=== PATIENT | female | born 1960 | race Caucasian/White ===

== ENCOUNTER 2022-10-21 09:00 | Inpatient (IN) ==
--- NOTE | 2022-09-22 16:02 | PAT Medication Instructions ---
Medication Instructions Date of Service September 22, 2022 Home Medications aspirin 81 mg tablet 81 mg PO QAM atorvastatin 10 mg tablet 10 mg PO QAM calcium carbonate 600 mg-vitamin D3 5 mcg (200 unit) tablet 1 tab PO QAM flecainide 50 mg tablet 50 mg PO Q12H levocetirizine 5 mg tablet (Xyzal) 5 mg PO QAM levothyroxine 137 mcg tablet 137 mcg PO QAM metformin 500 mg tablet 500 mg PO QAM metoprolol tartrate 50 mg tablet 50 mg PO QAM multivitamin 1 tab PO QAM vitamins A,C,Z-sfyt-ybpsai 2,148 mcg-113 mg-45 mg-17.4 mg tablet (PreserVision AREDS) 2 tab PO QAM STOP taking 2 weeks before surgery vitamins A,C,R-zsuw-donzgi 2,148 mcg-113 mg-45 mg-17.4 mg tablet (PreserVision AREDS) 2 tab PO QAM DO NOT take the morning of surgery calcium carbonate 600 mg-vitamin D3 5 mcg (200 unit) tablet 1 tab PO QAM levocetirizine 5 mg tablet (Xyzal) 5 mg PO QAM metformin 500 mg tablet 500 mg PO QAM multivitamin 1 tab PO QAM Take morning of surgery With a small sip of water, OTHERWISE NOTHING TO EAT OR DRINK AFTER MIDNIGHT: aspirin 81 mg tablet 81 mg PO QAM (unless directed otherwise by surgeon) atorvastatin 10 mg tablet 10 mg PO QAM flecainide 50 mg tablet 50 mg PO Q12H levothyroxine 137 mcg tablet 137 mcg PO QAM metoprolol tartrate 50 mg tablet 50 mg PO QAM Take evening before surgery flecainide 50 mg tablet 50 mg PO Q12H Other Notes If you have any questions please call us at [phone] or [phone] or [phone] or [phone]
--- NOTE | 2022-09-30 12:07 | Anesthesiology Consultation ---
Date of Service September 30, 2022 Assessment & Plan (1) Encounter for pre-operative examination: - COVID screening: Per assessment on 09/30: No known COVID-19 positive contacts or current COVID-19 related symptoms. Travel screen negative. At surgeon discretion if preop Covid testing being done. - Check BSG AM DOS - Cardiology office visit (06/28/22): " Followup regarding CAD, HTN, HLD and PAF.. Upon further evaluation after our last visit, it was felt that she had atrial tachycardia. She was started on flecainide and her dose of metoprolol was increased. She wore a 7-day Zio in September as ordered by one of our EP colleagues and her avg HR was 106 bpm over the 7 days. She reports that her HR is often 100-115 bpm when checked at home by her pulse ox. It is unclear if there is an improved rate control of her atrial tachycardia or inappropriate sinus tachycardia. I will have her continue her current Rx and f/u with EP" - Cardiology office visit (09/14/22): "Cardiac risk assessment: Low" Chart Review Chart Review: Acceptable Risk for Surgery and Patient seen in Pre Admission Testing Teaching & Discussion Pre-Anesthesia Teaching/Discussion Notes: Instructed NPO after midnight before surgery,except medications with 15 cc of water. Medication instructions provided according to the PAT guidelines. History Surgery Operation Date: 10/21/22 09:15 Proposed Procedures p L2-S1 Decompression and Fusion with Spinal Cord Monitoring - Dudley Boone DO Height/Weight Height: 5 ft 7 in Weight: 114.1 kg Allergies Allergy/AdvReac Type Severity Reaction Status Date / Time azithromycin Allergy Intermediate Unknown Verified 09/22/22 10:06 bacitracin Allergy Intermediate swelling Verified 09/22/22 10:06 erythromycin base Allergy Intermediate Unknown Verified 09/22/22 10:06 polymyxin B Allergy Intermediate Swelling Verified 09/22/22 10:06 of the Eye Sulfa (Sulfonamide Allergy Intermediate Swelling Verified 09/22/22 10:06 Antibiotics) of the Eye tobramycin Allergy Intermediate swelling Verified 09/22/22 10:06 Medications Home Medications Medication Instructions Recorded Confirmed Last Taken aspirin 81 mg tablet 81 mg PO QAM 09/22/22 09/22/22 Unknown atorvastatin 10 mg tablet 10 mg PO QAM 09/22/22 09/22/22 Unknown calcium carbonate 600 mg-vitamin 1 tab PO QAM 09/22/22 09/22/22 Unknown D3 5 mcg (200 unit) tablet flecainide 50 mg tablet 50 mg PO Q12H 09/22/22 09/22/22 Unknown levocetirizine 5 mg tablet (Xyzal) 5 mg PO QAM 09/22/22 09/22/22 Unknown levothyroxine 137 mcg tablet 137 mcg PO QAM 09/22/22 09/22/22 Unknown metformin 500 mg tablet 500 mg PO QAM 09/22/22 09/22/22 Unknown metoprolol tartrate 50 mg tablet 50 mg PO QAM 09/22/22 09/22/22 Unknown multivitamin 1 tab PO QAM 09/22/22 09/22/22 Unknown vitamins A,C,D-ncmh-txifoz 2,148 2 tab PO QAM 09/22/22 09/22/22 Unknown mcg-113 mg-45 mg-17.4 mg tablet (PreserVision AREDS) Past Medical History Medical History CAD (coronary artery disease) Nonocclusive (2009) per cardio records Diabetes Environmental and seasonal allergies Hyperlipidemia Hypertension Hypothyroidism PAF (paroxysmal atrial fibrillation) Paroxysmal atrial tachycardia Exercise / Class Metabolic Activity II 4-5 Yardwork/Stairs/Walk up hill Past Surgical History Surgical History History of ankle surgery History of cardiac cath 2009 > no stents Hx of colonoscopy Hx of knee surgery Hx of tonsillectomy Past Anesthesia History No Hx of Anesthesia Complications and No Family Hx of Anesthesia Complications History of PONV No Hx of PONV and No Hx of Motion Sickness Social History Smoking Status: Never smoker Do You Dip or Chew Tobacco: No Hx Alcohol Use: Yes Alcohol type: wine alcohol intake frequency: holidays/special occasions only Hx Substance Use: No substance use type: does not use Review of Systems Patient denies chest pain, shortness of breath, dyspnea on exertion, fever, chills, cough, wheezing, palpitations. Physical Exam Vital Signs VITALS BP 134/87 P 99 TEMP 98.4 SP02 97%RA RESP 18 PHYSICAL Full cervical extension range of motion. Full TMJ range of motion. TMD 3.5 finger breaths Mallampati Score 2 Dentition: intact, + implant (molar) Lungs: clear throughout to auscultation Cardiac: regular rate and rhythm, no murmurs noted Spine: normal Carotid arteries: negative bruit Extremities: no edema Lab Results Anesthesia Preop Results Results Anesthesia Widget: WBC 6.67 K/ul (4.8-10.8) 09/30/22 Hgb 13.2 g/dl (12.0-16.0) 09/30/22 Hct 39.2 % (34.1-44.9) 09/30/22 Plt 201 K/uL (130-400) 09/30/22 Na 140 mmol/L (136-145) 09/30/22 K 4.3 mmol/L (3.5-5.1) 09/30/22 Cl 105 mmol/L (98-107) 09/30/22 CO2 30 mmol/L (21-32) 09/30/22 BUN 15 mg/dl (6-23) 09/30/22 Creat 1.01 mg/dl (0.6-1.2) 09/30/22 Glucose Level 117 mg/dl (70-99(Fasting)) H 09/30/22 PT 11.1 Seconds (9.0-12.0) 09/30/22 PTT 26.1 Seconds (21.0-31.0) 09/30/22 INR 1.0 (0.9-1.1) 09/30/22 HA1c 6.3 % (4.5-5.6) H 09/30/22 Urine Color Yellow 09/30/22 Urine Appearance Clear (Clear) 09/30/22 Urine pH 6.5 (4.5-7.5) 09/30/22 Urine Specific [place] 1.008 (1.000-1.030) 09/30/22 Urine Protein Negative (Negative) 09/30/22 Urine Glucose (UA) Negative (Negative) 09/30/22 Urine Ketones Negative (Negative) 09/30/22 Urine Blood Negative (Negative) 09/30/22 Urine Nitrite Negative (Negative) 09/30/22 Urine Bilirubin Negative (Negative) 09/30/22 Urine Urobilinogen Negative (Negative) 09/30/22 Urine Leukocyte Esterase Trace (Negative) H 09/30/22 Urine WBC (Auto) 1-5 /hpf (0-5) 09/30/22 Urine RBC (Auto) 0-4 /hpf (0-4) 09/30/22 Urine Hyaline Casts (Auto) 1-5 /lpf (0-5) 09/30/22 Urine Epithelial Cells (Auto) >30 /lpf (0-5) H 09/30/22 Urine Bacteria (Auto) Negative (Negative) 09/30/22 Blood Type O Positive 09/30/22 Antibody Screen NEGATIVE 09/30/22 Testing Electrocardiogram Date: 09/14/22 Sinus tachycardia with first-degree AV block at 112 bpm. Cannot rule out anterior infarct, age undetermined. Low amplitude anterior/septal leads. No change compared to 07/01/2021 per spray applicator comparison. Chest X-Ray Date: 09/30/22 FINDINGS: No lines and tubes are seen. The cardiomediastinal silhouette is normal. The lungs are clear. No evidence of pleural effusion or pneumothorax. IMPRESSION: No acute chest disease. Echocardiogram Date: 07/01/21 LVEF 50 to 55%. No significant valvular disease. Stress Test Date: 07/13/21 Type: nuclear Left ventricular perfusion is normal. There is no evidence of ischemia or infarction. No regional motion abnormalities noted on SPECT imaging. Post stress EF is normal at 60%. No evidence of ECG changes to suggest ischemia this is a low risk study. 54% MPHR. COVID-19 Risk Screen Screening Information COVID-19 Screen Date: 09/30/22 Exposure 21 Days Family/Household +COVID Last 21 Days: No Exposure 10 Days Any COVID Exposure Last 10 Days: No Symptoms Last 10 Days Experienced COVID Sx Last 10 Days: No + COVID 0-90 Days COVID + in Last 0-90 Days: No
[~2022-10-21 09:00] MED LIST: ACETAMINOPHEN 500 MG TAB PO SCH; CeleBREX 200 MG CAP PO SCH; GABAPENTIN 600 MG DOSE PO SCH; LR 15ML/HR IV SCH; ceFAZolin 2000MG 2,000 MG/15 ML SYR IV SCH
[2022-10-21] MEDS ORDERED: HYDROmorphone INJ 2 MG/ML SYR/VIAL IV PRN (09:24)
[2022-10-21] MEDS ORDERED: fentaNYL citrate 100 MCG/2 ML VIAL IV PRN (09:24)
[2022-10-21] MEDS ORDERED: ATROPINE SULFATE 0.1 MG/ML 10ML SYR IV PRN (09:24)
[2022-10-21] MEDS ORDERED: ePHEDrine sulfate 50 MG/ML AMP IV PRN (09:24)
[2022-10-21] MEDS ORDERED: ONDANSETRON INJ 2 MG/ML 2 ML VIAL IV PRN ×2 (09:24→15:42)
[2022-10-21] MEDS ORDERED: PROMETHAZINE HCL 6.25 MG in SODIUM CHLORIDE 0.9% 50 ML IV PRN (09:24)
[2022-10-21] MEDS ORDERED: MIDAZOLAM HCL 1 MG/ML 2ML VIAL ONE (10:30)
[2022-10-21] MEDS ORDERED: fentaNYL citrate 100 MCG/2 ML VIAL ONE (10:30)
--- NOTE | 2022-10-21 10:45 | History & Physical Bridge Note ---
Date of Service October 21, 2022 History & Physical Bridge Note I have examined the patient, reviewed the History & Physical and in the interval since the performance of the History & Physical I have noted the following changes of clinical significance: no changes noted
--- NOTE | 2022-10-21 10:47 | History & Physical Report ---
Date of Service October 21, 2022 Assessment & Plan (1) Neurogenic claudication due to lumbar spinal stenosis: Plan: L2-S1 decompression and fusion History of Present Illness Chief Complaint: Chronic back and leg pain Primary Care Provider: INESSA Diaz This is 62-year-old female who presents with chronic persistent back and leg pain after failing such course of nonoperative care she is here for surgical invention. Allergies Allergy/AdvReac Type Severity Reaction Status Date / Time azithromycin Allergy Intermediate hives, Verified 10/21/22 09:34 swelling bacitracin Allergy Intermediate swelling Verified 10/21/22 09:34 erythromycin base Allergy Intermediate swelling Verified 10/21/22 09:34 polymyxin B Allergy Intermediate Swelling Verified 10/21/22 09:34 of the Eye Sulfa (Sulfonamide Allergy Intermediate Swelling Verified 10/21/22 09:34 Antibiotics) of the Eye tobramycin Allergy Intermediate swelling Verified 10/21/22 09:34 Home Medications Medication Instructions Recorded Confirmed Type aspirin 81 mg tablet 81 mg PO QAM 09/22/22 10/21/22 History atorvastatin 10 mg tablet 10 mg PO QAM 09/22/22 10/21/22 History calcium carbonate 600 mg-vitamin 1 tab PO QAM 09/22/22 10/21/22 History D3 5 mcg (200 unit) tablet flecainide 50 mg tablet 50 mg PO Q12H 09/22/22 10/21/22 History levocetirizine 5 mg tablet (Xyzal) 5 mg PO QAM 09/22/22 10/21/22 History levothyroxine 137 mcg tablet 137 mcg PO QAM 09/22/22 10/21/22 History metformin 500 mg tablet 500 mg PO QAM 09/22/22 10/21/22 History metoprolol tartrate 50 mg tablet 50 mg PO QAM 09/22/22 10/21/22 History multivitamin 1 tab PO QAM 09/22/22 10/21/22 History vitamins A,C,A-cxmo-jlsylm 2,148 2 tab PO QAM 09/22/22 10/21/22 History mcg-113 mg-45 mg-17.4 mg tablet (PreserVision AREDS) Past Med/Surg History Medical History CAD (coronary artery disease) Nonocclusive (2009) per cardio records Diabetes Environmental and seasonal allergies Hyperlipidemia Hypertension Hypothyroidism PAF (paroxysmal atrial fibrillation) Paroxysmal atrial tachycardia Surgical History History of ankle surgery History of cardiac cath 2009 > no stents Hx of colonoscopy Hx of knee surgery Hx of tonsillectomy Social History Smoking Status: Never smoker Second Hand Exposure: No; Do You Dip or Chew Tobacco: No; Tobacco Cessation Education Requested by Patient: No Hx Alcohol Use: Yes Alcohol type: wine Hx Substance Use: No Preferred Language: Malay Communication Ability: Effective Hand Edger Required: No Beliefs That Will Affect Care: None Current Living Situation: Spouse Other Information That Helps Us Care for You: No Feels Safe at Home: Yes Safety Concerns: Feels Safe At This Time Assistive Devices: Glasses Physical Exam Physical Exam: Patient is alert and oriented Heart regular rhythm Lungs clear Results & Data Results & Data ([facility]) Vital Signs (Past 12 Hours) Vital Signs Temp Pulse Resp BP Pulse Ox O2 Del Method 10/21/22 10:15 122/78 10/21/22 09:37 36.5 C 110 H 18 150/103 H 97 Room Air
[2022-10-21] MEDS ORDERED: BUPIVACAINE/EPINEPHRINE 0.5% MPF 1:200,000 30 ML VIAL ONE (10:50)
[2022-10-21] MEDS ORDERED: ceFAZolin 330 MG/ML 1 GM VIAL ONE (10:51)
[2022-10-21] MEDS ORDERED: FLOSEAL HEMOSTATIC MATRIX 10ML TOP ONE (12:14)
[2022-10-21] MEDS ORDERED: PHENYLEPHRINE HCL 10 MG/ML VIAL ONE (12:31)
[2022-10-21] MEDS ORDERED: ROCURONIUM BROMIDE 10 MG/ML 5 ML VIAL IV ONE (13:20)
[2022-10-21] MEDS ORDERED: PROPOFOL IV EMULSION 10 MG/ML 20 ML VIAL IV ONE (13:20)
[2022-10-21] MEDS ORDERED: DEXAMETHASONE SOD INJ 4 MG/ML VIAL ONE (13:20)
[2022-10-21] MEDS ORDERED: LIDOCAINE 2% MPF LOCAL 5 ML VIAL INFIL ONE (13:20)
[2022-10-21] MEDS ORDERED: SUGAMMADEX SODIUM 200 MG/2 ML VIAL IV ONE (14:06)
--- NOTE | 2022-10-21 14:09 | Operative Report ---
Post Operative Report Pre & Post Diagnosis Operation Date: 10/21/22 10:35 Pre-Op Diagnosis: Neurogenic claudication due to lumbar spinal stenosis Post-Op Diagnosis: Neurogenic claudication due to lumbar spinal stenosis I identified the patient and participated in the time-out.: Yes Procedure Operation Date: 10/21/22 10:35 Actual Procedures #1 lumbar decompression bilateral medial facetectomies and foraminotomies L2-L3, L3-L4, L4-L5 and L5-S1. #2 posterior spinal fusion L2-S1. #3 placement posterior segmental instrumentation L2-S1. #4 interbody fusion L2-L3, L3-L4 and L4-5. #5 placement of Spira 11 x 26 mm cage at L2-L3, 12 x 26 mm cage at L3-L4 and 14 x 26 mm cage at L L4-L5. #6 placement locally harvested morselized autograft in the posterior gutters. #7 placement of I factor combined with the test interbody space and posterior lateral gutters. Surgeon Dudley Boone, DO Trial Judge Ron Sandoval Estimated Blood Loss 25 Findings See Below The patient is 5 foot 7 weighing over 113 kg with a BMI in excess of 39. Patient's body habitus did contribute to significant technical difficulty requiring her deepest retractors longus instruments in order from her procedure. This had at least 50% increased operative time. Specimens None Indications This is a 62-year-old female who presents above-mentioned diagnosis after failed course of nonoperative care she is here for surgical invention. Description of Procedure Patient was met with identified informed consent obtained. Patient was then taken to the operative suite underwent ablation placed in a prone position adjustable top Davy frame. All bony promises well-padded eyes inspected to ensure no external pressure placed upon the. This point the lumbar spine was prepped and draped in normal sterile fashion. Sharp dissection with the assistance of Bovie cautery was then performed down to and exposing the lamina transverse processes of L2-L3 L4-5 and sacral ala bilaterally. From caudal to cephalad fashion complete laminectomy L5 L4 L3 and L2 was performed including bilateral medial facetectomies and foraminotomies addressing severe spinal stenosis. Pedicle screws were then placed in L to L3-L4-L5 and S1 levels bilaterally with assistance of fluoroscopy appropriate sized mary contoured and placed. By way the transforaminal approach and left pleat discectomy of L4-L5 was performed endplates curetted to subcortical bleeding bone and a 14 x 26 mm spiral cage with I factor tapped in position. Then proceeded to L3-L4 and again by way the transforaminal approach on the left complete discectomy performed endplates curetted to subcortical bleeding bone and the 12 x 26 mm spiral cage with I factor tapped in position. Lastly I approached L2-L3 and again by way of a transforaminal approach on the left complete discectomy performed endplates curetted to subcortically bone and a 11 x 26 mm spiral cage with I factor tapped in position. The rods were then locked in final position bilaterally. The transverse processes of L2 L3-L4-L5 and S1 sacral ala burred to subcortical bleeding bone. I factor bone of the test and locally harvested morselized autograft placed in the posterior gutters. 15 round FATIMAH drain inserted. The incision was then closed with 1 Vicryl the fascia 2-0 Vicryl subcutaneously and 4 Monocryl for final skin closure. Steri-Strips dressings placed. Patient waken taken to PACU in stable condition. Please note spinal cord monitoring visualized at the procedure no changes noted. Lastly Ron Sandoval was present at the entire surgery and while the patient positioning complex portions of the surgery and final skin closure. I attest to the content of the Intraoperative Record and any orders documented therein. Any exceptions are noted below.
[2022-10-21] MEDS ORDERED: ONDANSETRON INJ 2 MG/ML 2 ML VIAL ONE (14:11)
--- NOTE | 2022-10-21 14:37 | Fluoroscopy Report ---
FL lumbar spine 2-3V CLINICAL HISTORY: L2-S1 DECOMPRESSION AND FUSION COMPARISON STUDY: None. FLUOROSCOPY TIME: 48 seconds FLUOROSCOPY IMAGES: 3 EXPOSURE DOSE: 50.8 mGy FINDINGS: Posterior decompression and fusion from L2 through S1 with pedicle screws and rods. The etelvina dware is intact. Disc spacers are placed. IMPRESSION: Fluoroscopic assistance as above. ACT 112: Negative or not required by law. Electronically signed by: Angelo Montes M.D. 10/21/2022 2:36 PM
--- NOTE | 2022-10-21 14:58 | Anesthesiology Progress Note ---
Date of Service October 21, 2022 Anesthesia Post Procedure Vital Signs Vital Signs: Temp Pulse Resp BP Pulse Ox O2 Del Method O2 Flow Rate 10/21/22 14:40 36.4 C L 60 21 107/64 99 Nasal Cannula 2 10/21/22 10:15 122/78 10/21/22 09:37 36.5 C 110 H 18 150/103 H 97 Room Air Pain Intensity Lower Back: Pain Intensity: 2 Transfer of Care Handoff Completed per policy Notes Mental Status: alert / awake / arousable and participated in evaluation Patient Amnestic to Procedure: Yes Nausea / Vomiting: adequately controlled Pain: adequately controlled Airway Patency, RR, SpO2: stable & adequate BP & HR: stable & adequate Hydration State: stable & adequate Anesthetic Complications: no major complications apparent and Pt Satisfied with anesthetic care
[2022-10-21] MEDS ORDERED: LORazepam 2 MG/1 ML VIAL IV PRN (15:42)
[2022-10-21] MEDS ORDERED: ALUMINUM/MAGNESIUM SUSP 30 ML UDC PO PRN (15:42)
[2022-10-21] MEDS ORDERED: diphenhydrAMINE Capsule 25 MG CAP PO PRN (15:42)
[2022-10-21] MEDS ORDERED: FAMOTIDINE 20 MG TAB PO PRN (15:42)
[2022-10-21] MEDS ORDERED: METOCLOPRAMIDE HCL INJ 5 MG/ML 2 ML VIAL IV PRN (15:42)
[2022-10-21] MEDS ORDERED: PHARMACY GLYCEMIC MGMT CONSULT PRN (15:42)
[2022-10-21] MEDS ORDERED: ONDANSETRON 4 MG OD TAB PO PRN (15:42)
[2022-10-21] MEDS ORDERED: hydrOXYzine HCl 25 MG TAB PO PRN (15:42)
[2022-10-21] MEDS ORDERED: MAGNESIUM HYDROXIDE SUSP 30 ML UDC PO PRN (15:42)
[2022-10-21] MEDS ORDERED: PROMETHAZINE HCL 12.5 MG in SODIUM CHLORIDE 0.9% 50 ML IV PRN (15:42)
[2022-10-21] MEDS ORDERED: NALOXONE HCL 0.4 MG/1 ML VIAL/CARP IV PRN (15:42)
[2022-10-21] MEDS ORDERED: DO NOT ADMINISTER FLU VACCINE PRN (15:42)
[2022-10-21] MEDS ORDERED: bisacodyL 10 MG SUPP PR PRN (15:42)
[2022-10-21] MEDS ORDERED: ACETAMINOPHEN 1,000 MG/100 ML VIAL IV PRN (15:42)
[2022-10-21] MEDS ORDERED: SOD PHOSPHATE/SOD BIPHOSPHATE ENEMA 132 ML BTL PR PRN (15:42)
[2022-10-21] MEDS ORDERED: LORazepam 0.5 MG TAB PO PRN (15:42)
[2022-10-21] MEDS ORDERED: HYDROmorphone INJ 0.5 MG/0.5 ML SYR IV PRN (15:42)
[2022-10-21] MEDS ORDERED: DO NOT ADMINISTER PNEUMOCOCCAL VACCINE PRN (15:42)
[2022-10-21] MEDS ORDERED: HYDROmorphone INJ 1 MG/ML SYRINGE IV PRN (15:42)
[2022-10-21] MEDS: LACTATED RINGER'S 1,000 ML IV SCH ×2 (15:57→22:18)
--- NOTE | 2022-10-21 16:35 | Hospitalist Consultation ---
Date of Consultation October 21, 2022 Assessment & Plan (1) Neurogenic claudication due to lumbar spinal stenosis: - 10/21/22 s/p #1 lumbar decompression bilateral medial facetectomies and foraminotomies L2-L3, L3-L4, L4-L5 and L5-S1. #2 posterior spinal fusion L2- S1. #3 placement posterior segmental instrumentation L2-S1. #4 interbody fusion L2-L3, L3-L4 and L4-5. #5 placement of Spira 11 x 26 mm cage at L2-L3, 12 x 26 mm cage at L3-L4 and 14 x 26 mm cage at L L4-L5. #6 placement locally harvested morselized autograft in the posterior gutters. #7 placement of I factor combined with the test interbody space and posterior lateral gutters. - Pain control, DVT ppx, ambulation per primary team - Surgical site intact, CDI. FATIMAH drain with sanguinous mater (2) Paroxysmal atrial tachycardia: Previously thought to be A. fib, on consider outpatient eval and monitoring patient did not show A. fib. 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 Sliding scale insulin, goal BSG [id number]. Pharmacy glycemic consult is in place (6) CAD (coronary artery disease): Nonocclusive disease per review, patient last stress echo 2020 was without ischemic findings No history of reduced EF or heart failure No chest pain on assessment, continue metoprolol. Recommend resuming aspirin 24-48 hours postoperatively if okay by primary team. May increase to twice daily for DVT prophylaxis, would recommend addition of temporary PPI Plan Patient is doing clinically well at the bedside. Recommend routine CBC/BMP in the morning and continued blood sugar checks with meals. Pharmacy is following for glycemic management, otherwise all medical issues well controlled and stable at this time. Medicine will sign off, please reconsult if any acute concerns develop History of Present Illness Reason for Consultation: Postop management Attending Physician: Dudley Boone, DO History of Present Illness Judy is a 62yo F with a PMHx of CAD, PAfib, DM BMI 39, and hypothryoidism who presented for scheduled #1 lumbar decompression bilateral medial facetectomies and foraminotomies L2-L3, L3-L4, L4-L5 and L5-S1. #2 posterior spinal fusion L2-S1. #3 placement posterior segmental instrumentation L2-S1. #4 interbody fusion L2-L3, L3-L4 and L4-5. #5 placement of Spira 11 x 26 mm cage at L2-L3, 12 x 26 mm cage at L3-L4 and 14 x 26 mm cage at L L4-L5. #6 placement locally harvested morselized autograft in the posterior gutters. #7 placement of I factor combined with the test interbody space and posterior lateral gutters. She is seen at the bedside postoperatively. Reports that overall she feels well, her leg pain has completely resolved but her back pain seems a little bit worse and is in a band bilaterally in her low back. No fevers, chills, sweats, lightheadedness, dizziness, no palpitations, no chest pain. Sensation is intact in her hands and feet, she has not noticed any numbness. She has a FATIMAH drain which she has not looked at recently. Other than the pain in her back at her surgical site, she has no acute concerns or questions. Medication/allergies reviewed as follows: with pAfib: "Changed doctors and had tons of testing, though was atrial tachycardia but not actually afib." Is not on a blood thinner, on 81mg aspirin. Took metoprolol and flecanide this AM No hx of HI or heart stents DM: Takes metformin, did not take today HLD: Atorvastatin 10' Synthroid 137mg No blood pressure medicines. Allergies Allergy/AdvReac Type Severity Reaction Status Date / Time azithromycin Allergy Intermediate hives, Verified 10/21/22 09:34 swelling bacitracin Allergy Intermediate swelling Verified 10/21/22 09:34 erythromycin base Allergy Intermediate swelling Verified 10/21/22 09:34 polymyxin B Allergy Intermediate Swelling Verified 10/21/22 09:34 of the Eye Sulfa (Sulfonamide Allergy Intermediate Swelling Verified 10/21/22 09:34 Antibiotics) of the Eye tobramycin Allergy Intermediate swelling Verified 10/21/22 09:34 Home Medications Medication Instructions Recorded Confirmed Type aspirin 81 mg tablet 81 mg PO QAM 09/22/22 10/21/22 History atorvastatin 10 mg tablet 10 mg PO QAM 09/22/22 10/21/22 History calcium carbonate 600 mg-vitamin 1 tab PO QAM 09/22/22 10/21/22 History D3 5 mcg (200 unit) tablet flecainide 50 mg tablet 50 mg PO Q12H 09/22/22 10/21/22 History levocetirizine 5 mg tablet (Xyzal) 5 mg PO QAM 09/22/22 10/21/22 History levothyroxine 137 mcg tablet 137 mcg PO QAM 09/22/22 10/21/22 History metformin 500 mg tablet 500 mg PO QAM 09/22/22 10/21/22 History metoprolol tartrate 50 mg tablet 50 mg PO QAM 09/22/22 10/21/22 History multivitamin 1 tab PO QAM 09/22/22 10/21/22 History vitamins A,C,U-zlge-uyjrbz 2,148 2 tab PO QAM 09/22/22 10/21/22 History mcg-113 mg-45 mg-17.4 mg tablet (PreserVision AREDS) Patient History Medical History (Updated 10/21/22 @ 16:57 by Salvador Avila MD) CAD (coronary artery disease) Nonocclusive (2009) per cardio records Diabetes Environmental and seasonal allergies Hyperlipidemia Hypertension Hypothyroidism PAF (paroxysmal atrial fibrillation) Paroxysmal atrial tachycardia Surgical History History of ankle surgery History of cardiac cath 2009 > no stents Hx of colonoscopy Hx of knee surgery Hx of tonsillectomy Social History Smoking Status: Never smoker Second Hand Exposure: No; Do You Dip or Chew Tobacco: No; Tobacco Cessation Education Requested by Patient: No Hx Alcohol Use: Yes Alcohol type: wine Hx Substance Use: No Preferred Language: Marshallese Communication Ability: Effective 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 NAD. Cooperative. HEENT: Atraumatic, normocephalic. Pulm: CTAB A&P. -wheezes, -rales, -rhonchi. Symmetrical chest rise. No increased work of breathing. No respiratory distress. Cardiac: RRR, -mrg. Radial pulses intact and symmetrical. Abdominal: Nontender, nondistended, soft. BS present. Back: Surgical incision intact, clean and well dressed. FATIMAH drain is in place draining sanguinous material Extremities: Sensation intact to soft touch in hands and feet bilaterally without asymmetry. Able to wiggle toes and ankle dorsiflexion/plantarflexion 5/5 bilaterally. 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 PT pulses intact bilaterally. Results & Data Results & Data ([facility]) Vital Signs (Past 12 Hours) Vital Signs Temp Pulse Pulse Resp BP Pulse Ox O2 Del Method 10/21/22 15:45 Nasal Cannula 10/21/22 15:45 36.6 C 67 18 104/71 94 Room Air 10/21/22 15:30 36.2 C L 65 19 104/67 97 Nasal Cannula 10/21/22 15:10 66 14 98/74 L 95 Nasal Cannula 10/21/22 15:20 66 16 98/64 L 96 Nasal Cannula 10/21/22 15:00 63 19 109/67 98 Nasal Cannula 10/21/22 14:50 60 16 101/70 98 Nasal Cannula 10/21/22 14:40 36.4 C L 60 21 107/64 99 Nasal Cannula 10/21/22 10:15 122/78 10/21/22 09:37 36.5 C 110 H 18 150/103 H 97 Room Air O2 Flow Rate 10/21/22 15:45 2 10/21/22 15:45 10/21/22 15:30 2 10/21/22 15:10 2 10/21/22 15:20 2 10/21/22 15:00 2 10/21/22 14:50 2 10/21/22 14:40 2 10/21/22 10:15 10/21/22 09:37 PG Care Time/CCT Total # of Minutes Spent Total Time Spent with Patient: Total time spent is greater than 50% in coordination of care (as documented) at patient's floor/unit and/or counseling patient: Coding Level of Care Code INP/OBS CONSULT LVL 3, 45 MIN Diagnoses Neurogenic claudication due to lumbar spinal stenosis M48.062 Paroxysmal atrial tachycardia I47.1 Hypothyroidism E03.9 Hypertension I10 Diabetes E11.9 CAD (coronary artery disease) I25.10
[2022-10-21] MEDS ORDERED: DEXTROSE 50% 50 ML SYRINGE IV PRN (17:00)
[2022-10-21] MEDS ORDERED: GLUCAGON FOR INJ 1 MG VIAL IM PRN (17:00)
[2022-10-21] MEDS ORDERED: GLUCOSE 10 TAB/TUBE PO PRN (17:00)
[2022-10-21] MEDS ORDERED: CARBOHYDRATES FOR HYPOGLYCEMIA PO PRN (17:00)
[2022-10-21] MEDS ORDERED: GLUCOSE 40% GEL 15 GM TUBE PO PRN (17:00)
[2022-10-21] MEDS: INSULIN ASPART PER UNIT SC SCH ×2 (17:20→21:55)
[2022-10-21] MEDS: FLECAINIDE ACETATE 100 MG TABLET PO SCH (17:53)
[2022-10-21] MEDS: DOCUSATE SODIUM/SENNA 50/8.6MG TAB PO SCH (21:44)
[2022-10-21] MEDS: ceFAZolin 2000MG 2,000 MG/15 ML SYR IV SCH (21:47)
[2022-10-21] MEDS: traMADol HCL 50 MG TABLET PO PRN (22:24)
[2022-10-22] MEDS: FLECAINIDE ACETATE 100 MG TABLET PO SCH ×3 (00:11→21:11)
[2022-10-22] MEDS: oxyCODONE HCL IR 5 MG TAB (IMMEDIATE RELEASE) PO PRN ×4 (00:16→18:50)
[2022-10-22] MEDS ORDERED: INSULIN ASPART PER UNIT SC SCH (02:00)
[2022-10-22] MEDS: ceFAZolin 2000MG 2,000 MG/15 ML SYR IV SCH (04:33)
[2022-10-22] MEDS: ACETAMINOPHEN 500 MG TAB PO PRN (04:35)
[2022-10-22] MEDS: POLYETHYLENE (MIRALAX) 17 GM PACK PO SCH ×4 (05:46→23:29)
[2022-10-22] MEDS: LEVOTHYROXINE SODIUM 137 MCG TABLET PO SCH (05:47)
[2022-10-22] MEDS: traMADol HCL 50 MG TABLET PO PRN ×2 (06:30→21:10)
[2022-10-22 06:53] LABS: Basophils # (auto) 0.02 K/uL (0-0.2); Basophils % (auto) 0.2 %; Hematocrit (blood only) 31.3 % (37.0-47.0); Hemoglobin 10.1 g/dl (12.0-16.0); Immature Granulocytes # (auto) 0.07 K/uL (0.01-0.20); Immature Granulocytes % (auto) 0.6 %; Lymphocytes # (auto) 1.06 K/uL (1.2-3.4); Lymphocytes % (auto) 8.5 %; Mean Corpuscular Hemoglobin 27.7 pg (25.0-34.0); Mean Corpuscular Hgb Conc 32.3 g/dL (32.0-36.0); Mean Corpuscular Volume 85.8 fL (80.0-100.0); Mean Platelet Volume 10.3 fL (9.4-12.4); Monocytes # (auto) 0.83 K/uL (0.11-0.59); Monocytes % (auto) 6.7 %; Neutrophils # (auto) 10.47 K/uL (1.40-6.50); Platelet Count 196 K/uL (130-400); RDW Coefficient of Variation 13.9 % (11.5-14.5); RDW Standard Deviation 43.8 fL (36.4-46.3); Red Blood Count 3.65 M/uL (4.20-5.40); White Blood Count 12.45 K/ul (4.8-10.8)
[2022-10-22 07:29] LABS: BUN Creatinine Ratio 17.5 (10-20); Calcium 9.4 mg/dl (8.5-10.1); Creatinine Clr Calc Pharmacy 71.9 ml/min; Est GFR (African American) 66.5 ml/min; Est GFR (Non-African American) 57.4 ml/min; Potassium 4.3 mmol/L (3.5-5.1)
[2022-10-22] MEDS: CETIRIZINE HCL 10 MG TABLET PO SCH (08:28)
[2022-10-22] MEDS: ASPIRIN 81 MG ECTAB PO SCH (08:28)
[2022-10-22] MEDS: CALCIUM 600MG + VIT D 400 IU TAB PO SCH (08:29)
[2022-10-22] MEDS: CEROVITE ADV FORMULA TAB PO SCH (08:29)
[2022-10-22] MEDS: METOPROLOL TARTRATE 50 MG TAB PO SCH (08:37)
[2022-10-22] MEDS: dexAMETHasone 6 MG in SYRINGE 0 ML IV SCH (08:39)
[2022-10-22] MEDS: ATORVASTATIN 10 MG TAB PO SCH (08:47)
[2022-10-22] MEDS ORDERED: NON-FORMULARY MEDICATION (Vitamins A,C,E-Zinc-Copper [Preservision Areds] 2,148 mcg-113 mg PO SCH (09:00)
[2022-10-22] MEDS ORDERED: NovoLIN-N (NPH) PER UNIT CHARGE SQ SCH (09:00)
[2022-10-22] MEDS ORDERED: NON-FORMULARY MEDICATION (Multivitamin Tablet) PO SCH (09:00)
[2022-10-22] MEDS: INSULIN ASPART PER UNIT SC SCH ×4 (09:33→21:38)
--- NOTE | 2022-10-22 09:52 | Orthopedic Progress Note ---
Date of Service October 22, 2022 Assessment & Plan (1) Neurogenic claudication due to lumbar spinal stenosis: Plan: Patient is doing well postop day 1 status post L2-S1 decompression and fusion. We will continue with GI and DVT prophylaxis. She will be seen by physical therapy for ambulation and gait training. We will continue medication for pain control. She will likely be of this throughout the weekend and be able to be discharged home on Monday. Admission and Anticipated Discharge Date Admission Date: October 21, 2022 Subjective Patient seen bedside in room 314. She appears comfortable this morning. She states her pain is well controlled. They have discontinued her catheter and she is already urinated on her own. She is tolerating food well. She denies any increased numbness tingling or paresthesias in her legs. Physical Exam Physical Exam: On exam she is alert and oriented. Her calves are supple nontender abdomen soft and nontender her dressings clean dry and intact. Her FATIMAH drain is in place and is put out 90 on the sliver lapper and 70 over the day shift. Her hematocrit is 31.3 and hemoglobin is 10.1. Her strength and sensation are both intact. Results & Data ([facility]) Vital Signs (Past 12 Hours) Vital Signs Temp Pulse Pulse Resp BP Pulse Ox O2 Del Method 10/22/22 08:35 70 119/79 10/22/22 08:12 36.6 C 70 20 170/80 H 92 Room Air 10/22/22 06:28 93 Room Air 10/22/22 02:02 37.0 C 82 16 131/80 95 Nasal Cannula 10/21/22 22:00 Nasal Cannula 10/21/22 22:38 36.3 C L 76 16 120/76 96 Nasal Cannula O2 Flow Rate 10/22/22 08:35 10/22/22 08:12 10/22/22 06:28 10/22/22 02:02 2 10/21/22 22:00 2 10/21/22 22:38 2
--- NOTE | 2022-10-22 14:55 | Pharmacy Report ---
Pharmacy Glycemic Short Note 2 - Date of Service October 22, 2022 - Glycemic Short BSG Results (Last 24 hours): 10/21/22 10/21/22 10/22/22 17:02 20:42 02:03 Glucose POC Glucose 156 H 205 H 153 H 10/22/22 10/22/22 10/22/22 06:08 07:58 12:05 Glucose 137 H POC Glucose 139 H 194 H OUTPATIENT ANTIDIABETIC REGIMEN: * metformin ASSESSMENT: * Patient s/p spinal surgery, POD 1 - type 2 diabetic managed only on metformin at home * Steroids continued this morning, therefore anticipate steroid induced hyperglycemia. Started NPH 0.2 units/kg daily with IV dexamethasone PLAN FOR INPATIENT GLYCEMIC CONTROL: * Hold outpatient oral diabetes medications * Basal insulin * NPH 15 units daily with IV dexamethasone * Bolus insulin * NovoLog per scale ACHS or Q6hrs while NPO * Goal Range: Low 110 mg/dL - High 140 mg/dL * Correction Factor: 20 mg/dL/unit * Nutritional / Prandial insulin per carb ratio of 1 unit per 6 grams CHO consumed
[2022-10-22] MEDS: DOCUSATE SODIUM/SENNA 50/8.6MG TAB PO SCH (21:10)
[2022-10-23] MEDS: oxyCODONE HCL IR 5 MG TAB (IMMEDIATE RELEASE) PO PRN ×4 (01:30→18:31)
[2022-10-23] MEDS: POLYETHYLENE (MIRALAX) 17 GM PACK PO SCH ×4 (06:03→21:40)
[2022-10-23] MEDS: LEVOTHYROXINE SODIUM 137 MCG TABLET PO SCH (06:03)
--- NOTE | 2022-10-23 07:52 | Orthopedic Progress Note ---
Date of Service October 23, 2022 Assessment & Plan (1) Neurogenic claudication due to lumbar spinal stenosis: Plan: Patient is doing well postoperative day #2 status post lumbar decompression fusion from L2-S1. We will continue with GI and DVT prophylaxis as well as pain control. She will continue to advance her activities as comfort permits. In all likelihood she will be able to be discharged home tomorrow. Admission and Anticipated Discharge Date Admission Date: October 21, 2022 Subjective Patient was seen bedside in room 314. She is doing well this morning. Her pain is well controlled. She does have some difficulties going from sitting to standing position. She is not having any nausea or vomiting she is tolerating p.o. well. She has been ambulating with physical therapy and independent. She denies any other numbness, tingling, or paresthesias. Physical Exam Physical Exam: On exam she is alert and oriented. She is able to ambulate with the use of a rolling walker. Dressing is clean dry and intact. FATIMAH drain is in place and holding suction. She has had 40 cc out on the last shift. Her strength and sensation are both intact her gait is stable with a walker. Results & Data ([facility]) Vital Signs (Past 12 Hours) Vital Signs Temp Pulse Resp BP Pulse Ox O2 Del Method 10/22/22 22:20 36.8 C 111 H 16 115/75 97 Room Air 10/22/22 21:24 36.6 C 113 H 18 129/79 94 Room Air
[2022-10-23] MEDS: FLECAINIDE ACETATE 100 MG TABLET PO SCH ×2 (08:10→20:33)
[2022-10-23] MEDS: ASPIRIN 81 MG ECTAB PO SCH (08:11)
[2022-10-23] MEDS: METOPROLOL TARTRATE 50 MG TAB PO SCH (08:12)
[2022-10-23] MEDS: CETIRIZINE HCL 10 MG TABLET PO SCH (08:12)
[2022-10-23] MEDS: CALCIUM 600MG + VIT D 400 IU TAB PO SCH (08:12)
[2022-10-23] MEDS: ATORVASTATIN 10 MG TAB PO SCH (08:12)
[2022-10-23] MEDS: CEROVITE ADV FORMULA TAB PO SCH (08:13)
[2022-10-23] MEDS: dexAMETHasone 6 MG in SYRINGE 0 ML IV SCH (08:32)
[2022-10-23] MEDS: INSULIN ASPART PER UNIT SC SCH ×4 (08:33→21:39)
[2022-10-23] MEDS ORDERED: NovoLIN-N (NPH) PER UNIT CHARGE SQ SCH (09:00)
--- NOTE | 2022-10-23 12:25 | Pharmacy Report ---
Pharmacy Glycemic Short Note 2 - Date of Service October 23, 2022 - Glycemic Short BSG Results (Last 24 hours): 10/22/22 10/22/22 10/23/22 17:04 20:36 08:06 POC Glucose 222 H 190 H 136 H 10/23/22 12:07 POC Glucose 204 H OUTPATIENT ANTIDIABETIC REGIMEN: * metformin ASSESSMENT: 10/23 * Patient received total of 57 units of insulin yesterday, of which 15 units were NPH to cover IV dexamethasone * Fasting BSG 136 mg/dL - BSGs trending up yesterday with steroids, will increase NPH dose ~20% * Will tighten CF/CR this AM 2/4 * Patient s/p spinal surgery, POD 1 - type 2 diabetic managed only on metformin at home * Steroids continued this morning, therefore anticipate steroid induced hyperglycemia. Started NPH 0.2 units/kg daily with IV dexamethasone PLAN FOR INPATIENT GLYCEMIC CONTROL: * Hold outpatient oral diabetes medications * Basal insulin * NPH 18 units daily with IV dexamethasone * Bolus insulin * NovoLog per scale ACHS or Q6hrs while NPO * Goal Range: Low 110 mg/dL - High 140 mg/dL * Correction Factor: 15 mg/dL/unit * Nutritional / Prandial insulin per carb ratio of 1 unit per 5 grams CHO consumed
[2022-10-23] MEDS: ACETAMINOPHEN 500 MG TAB PO PRN (20:32)
[2022-10-23] MEDS: DOCUSATE SODIUM/SENNA 50/8.6MG TAB PO SCH (20:33)
[2022-10-24] MEDS: oxyCODONE HCL IR 5 MG TAB (IMMEDIATE RELEASE) PO PRN ×2 (05:46→12:45)
[2022-10-24] MEDS: LEVOTHYROXINE SODIUM 137 MCG TABLET PO SCH (05:46)
[2022-10-24] MEDS: POLYETHYLENE (MIRALAX) 17 GM PACK PO SCH (05:47)
[2022-10-24] MEDS: ACETAMINOPHEN 500 MG TAB PO PRN (07:44)
[2022-10-24] MEDS: ATORVASTATIN 10 MG TAB PO SCH (07:54)
[2022-10-24] MEDS: CETIRIZINE HCL 10 MG TABLET PO SCH (07:55)
[2022-10-24] MEDS: CALCIUM 600MG + VIT D 400 IU TAB PO SCH (07:55)
[2022-10-24] MEDS: METOPROLOL TARTRATE 50 MG TAB PO SCH (07:55)
[2022-10-24] MEDS: FLECAINIDE ACETATE 100 MG TABLET PO SCH (07:56)
[2022-10-24] MEDS: CEROVITE ADV FORMULA TAB PO SCH (07:56)
[2022-10-24] MEDS: ASPIRIN 81 MG ECTAB PO SCH (07:56)
[2022-10-24] MEDS: dexAMETHasone 6 MG in SYRINGE 0 ML IV SCH (08:25)
[2022-10-24] MEDS: INSULIN ASPART PER UNIT SC SCH ×2 (08:26→12:46)
[2022-10-24] MEDS ORDERED: Nursing to Pharmacy Communication SCH (08:45)
[2022-10-24] MEDS ORDERED: NovoLIN-N (NPH) PER UNIT CHARGE SQ ONE (09:00)
--- NOTE | 2022-10-24 10:05 | Discharge Summary ---
Date of Service October 24, 2022 Admission HPI Per Admitting Provider This is 62-year-old female who presents with chronic persistent back and leg pain after failing such course of nonoperative care she is here for surgical invention. Principal Diagnosis Lumbar spinal stenosis with neurogenic claudication Discharge Data Allergies Allergy/AdvReac Type Severity Reaction Status Date / Time azithromycin Allergy Intermediate hives, Verified 10/21/22 09:34 swelling bacitracin Allergy Intermediate swelling Verified 10/21/22 09:34 erythromycin base Allergy Intermediate swelling Verified 10/21/22 09:34 polymyxin B Allergy Intermediate Swelling Verified 10/21/22 09:34 of the Eye Sulfa (Sulfonamide Allergy Intermediate Swelling Verified 10/21/22 09:34 Antibiotics) of the Eye tobramycin Allergy Intermediate swelling Verified 10/21/22 09:34 Consultations 10/21/22 15:42 Consult Hospitalist Routine Procedures Performed Operation Date: 10/21/22 10:35 Actual Procedures p L2-S1 Decompression and Fusion, Spinal Cord Monitoring(Not Applicable) - Dudley Boone DO Ordered Studies 10/21/22 10:35 FL lumbar spine 2-3V Routine Hospital Course (1) Neurogenic claudication due to lumbar spinal stenosis: Patient went multilevel lumbar decompression fusion tolerated as well as taken to orthopedic for postoperative. Postop day 1 she was up and ambulating progress postop day #2 on postop day #3 pain was well controlled FATIMAH drain decreasing appropriately. Exercise to testing. Separately discharged home. Discharge orders instructions were on the chart for further review. Total Time Total Time Spent Total Time Spent (In Minutes): 20 minutes Discharge Plan Discharge Items Patient Disposition: Home - Self-Care Reason For Visit: postop Discharge Diagnosis: Lumbar spinal stenosis with neurogenic claudication Activity: As commented below Non-emergency contact: Primary Care Provider Call non-emergency contact if: you have any medication questions Follow-up/Referrals: Gloria Angela CRNP [Primary Care Provider] - Diet: Regular Addtl Attending Provider Instructions: ACTIVITY RECOMMENDATIONS: SELF CARE INSTRUCTIONS AFTER THORACIC/LUMBAR FUSIONS 1. You may walk to your tolerance. It is good exercise for your legs and back. Expect some back and intermittent leg aches and pains. 2. You may perform "counter-top" level activities (make a sandwich, shubham with a project, etc.). 3. No bending or lifting of more than 10 pounds or back twisting of any nature (roll like a log when turning in bed). 4. You may ride in a car for 20-30 minutes at a time. No driving until after your first visit with your doctor. 5. Frequent changes of position and restricting sitting to 30 minutes at a time will help limit the amount of back spasms and stiffness you may experience. 6. You may discontinue the use of ambulatory aids (cane, crutches, etc.) once your strength and confidence allow. 7. You may superintendent ammunition storage the shower and let water strike your incision when you arrive home at least once daily. Do not take a tub bath, sit in a hot tub or go into a swimming pool until after your first recheck in the office. SPECIAL CARE INSTRUCTIONS: VERY IMPORTANT TO READ AND REVIEW A. Your surgical incision has been closed with a cosmetic suture under the skin that will dissolve in about 6 weeks. In 14 days, you can use a pair of clean scissors and cut the suture that is left outside of the skin at the ends of your incision. 1. The small skin tapes can be removed 7 days after surgery if they have not fallen off by that point. 2. You may keep the wound open to air as much as possible to promote healing after post-op day number 5 unless told otherwise by your doctor. 3. If you think the wound looks like it is becoming infected (redness or worsening drainage) and/or you are experiencing fever, chill or worsening back pain and muscle spasms, contact the office so that we may evaluate you as soon as possible. B. Complications are uncommon, but please contact us if you have any signs or symptoms of: 1. wound infection (fever higher than 102.5 degrees F, redness, separation of wound, drainage, or increasing pain from the incision) 2. blood clots in legs (pain, swelling, redness and warmth in legs) 3. urinary tract infection (fever higher than 102.5 degrees F, burning upon urination or increased frequency of urination) 4. nerve problems (inability to walk on your toes or heels, numbness, loss of bowel or bladder control) 5. any other symptoms that concern you C. Please call the office at if you have any concerns or questions about your operation or recovery. D. No smoking! Smoking drastically decreases the chance of a solid fusion. E. Do not take any anti-inflammatory medications (Indocin, Advil, Motrin, Aspirin, Naprosyn, etc.) as these may inhibit the chance of a solid fusion. Tylenol is okay to take for pain. MANAGING PAIN AFTER SPINAL SURGERY 1. Narcotic medication is intended for short-term use and will be provided for surgical pain. Surgical pain usually lasts for a period of 4-6 weeks. Narcotic medication includes Percocet, Vicodin, Darvocet, Tylenol #3 or Lortab. 2. Longer-term pain is more appropriately treated with non-narcotic medication such as Tylenol ES. 3. Muscle spasm is not appropriately treated with narcotics. Muscle relaxers such as Soma, Flexeril or Skelaxin can be used along with Tylenol ES. 4. Remember that we all live with some "aches and pains". This is not unusual or uncommon after an injury or as we get older. a. Back pain is expected and may include muscle spasms for 4 to 6 weeks after surgery. The pain should gradually improve. If the pain worsens for no apparent reason, please contact the office. b. Intermittent leg pain may also be experienced and should not be concerned about unless it worsens for no apparent reason. If so, please contact the office. 5. We will provide appropriate medication within the normal guidelines of their prescribed use. We will also be very cautious and aware of potential abuse and extended duration of patients' medication needs. a. Pain medications are for your comfort and to assist with sleep and rest so that the tissue can heal. They are not provided in order to return to normal activity and should not be used through the day. To do so or worsening pain at night can result from ongoing tissue damage and development of tolerance to the prescribed medicine. 6. Please allow 2-3 days to process refills. Prescriptions will not be mailed but must be picked up at the office. FOLLOW UP VISIT: Keep your scheduled follow-up appointment. Any questions, please call the office at . Pending Studies at Discharge: No Stand-Alone Forms: [employer], Smoking Cessation Medications and DC Order Prescriptions: New tramadol 50 mg tablet 50 mg PO Q6H PRN (Reason: pain, moderate) Qty: 30 0RF oxycodone 5 mg tablet 5 mg PO Q6H PRN (Reason: pain, severe) Qty: 30 0RF Continued multivitamin Tablet 1 tab PO QAM metformin 500 mg Tablet 500 mg PO QAM levothyroxine 137 mcg Tablet 137 mcg PO QAM atorvastatin 10 mg Tablet 10 mg PO QAM calcium carbonate-vitamin D3 600 mg-5 mcg (200 unit) Tablet 1 tab PO QAM flecainide 50 mg Tablet 50 mg PO Q12H metoprolol tartrate 50 mg Tablet 50 mg PO QAM aspirin 81 mg Tablet 81 mg PO QAM levocetirizine [Xyzal] 5 mg Tablet 5 mg PO QAM PreserVision AREDS 2,148 mcg-113 mg-45 mg-17.4mg Tablet 2 tab PO QAM Rx Instructions: administer with AM and PM meals Discharge Orders: Discharge Order (Routine); Ordered 10/24/22 Ordered By: Dudley Boone Admission Data Admit Date/Time: 10/21/22 14:12 Attending Provider: Dudley Boone Admit Provider: Dudley Boone Primary Care Provider: Gloria Angela Other Providers: Remy Campos Thomas E.
== END 2022-10-24 16:43 | disposition home or self-care (01) | DRG 455 ==
LOC: ASU 09:00 → 3E 14:12